=== PATIENT | female | born 1985 | race Caucasian/White ===

== ENCOUNTER 2019-07-01 07:57 | Emergency (ER) | payer MEDICAID ==
[~2019-07-01] VITALS: Ht 152.4 cm; Wt 68.0 kg
[2019-07-01 08:04] VITALS: BP 123/74
--- NOTE | 2019-07-01 08:14 | NUR ---
33 Y/O F C/C COUGH/FEVER X3 DAYS. PT TAKEN ROBITUSSIN/TYLENOL WITH NO RELIEF. NOT UP TO DATE WITH FLU SHOT/FAMILY SICK AT HOME. PT NKA. NO HX. NO RX. NO N/V/D. COUGH PAIN 8/10; FEVER BLISTERS X1 DAY. LUNG SOUNDS CLEAR. SIDE RAIL X1.
[2019-07-01 08:38] VITALS: BP 123/74
--- NOTE | 2019-07-01 08:38 | NUR ---
Patient discharged with v/s stable. Written and verbal after care instructions given and explained. Patient alert, oriented and verbalized understanding of instructions. Ambulatory with steady gait. All questions addressed prior to discharge. ID band removed. Patient advised to follow up with PMD. Rx of PROMETHAZINE,ACYCLOVIR given. Patient educated on indication of medication including possible reaction and side effects. Opportunity to ask questions provided and answered.
== END 2019-07-01 08:38 | disposition home or self-care (01) ==
LOC: MED 07:57
DX: B34.9 Viral infection, unspecified (principal); B00.1 Herpesviral vesicular dermatitis; J02.9 Acute pharyngitis, unspecified; R51 Headache; R19.7 Diarrhea, unspecified
CPT/HCPCS: 99283

== ENCOUNTER 2022-07-15 13:21 | Emergency (ER) | payer MEDICAID ==
[~2022-07-15] VITALS: Ht 152.4 cm; Wt 63.0 kg
[2022-07-15 13:26] VITALS: BP 132/82
[2022-07-15 16:32] LABS: APPEARANCE,URINE CLEAR (CLEAR); BILIRUBIN,URINE NEGATIVE (NEGATIVE); BLOOD, URINE LARGE (NEGATIVE); COLOR,URINE YELLOW (YELLOW); NITRITE, URINE NEGATIVE (NEGATIVE); PH,URINE 6.5 (5.0-9.0); UGLUCOSE NEGATIVE (NEGATIVE)
[2022-07-15 16:35] LABS: LEUKOCYTE ESTERASE ,URINE 3+ (NEGATIVE)
[2022-07-15] MEDS ORDERED: CEPH-588 PO (16:41)
[2022-07-15] MEDS ORDERED: PYR100 PO (16:41)
[2022-07-15 16:53] VITALS: BP 125/78
--- NOTE | 2022-07-15 16:53 | NUR ---
Patient discharged with v/s stable. Written and verbal after care instructions FOR UTI given and explained. Patient alert, oriented and verbalized understanding of instructions. Ambulatory with steady gait. All questions addressed prior to discharge. ID band removed. Patient advised to follow up with PMD. Rx of KEFLEX AND PYRIDIUM given. Opportunity to ask questions provided and answered.
[2022-07-15 17:04] LABS: RBC,URINE 20-50 /HPF (0-5); WBC,URINE 16-25 (MOD) /HPF (0-5)
== END 2022-07-15 16:53 | disposition home or self-care (01) ==
LOC: MED 13:21
DX: N39.0 Urinary tract infection, site not specified (principal); Z79.899 Other long term (current) drug therapy
CPT/HCPCS: 81001; 81025; 87086; 99283

== ENCOUNTER 2023-05-28 14:58 | Emergency (ER) | payer MEDICAID ==
[~2023-05-28] VITALS: Ht 152.4 cm; Wt 59.4 kg
[~2023-05-28 14:58] MED LIST: CEPH-588 PO; PYR100 PO
[2023-05-28 15:42] VITALS: BP 106/70; PULSE 76; RESP 20; TEMP 97.1; O2SAT 100
[2023-05-28] MEDS ORDERED: BPM/-9 PO (16:33)
[2023-05-28] MEDS ORDERED: SUD30 PO (16:37)
[2023-05-28 16:42] VITALS: BP 130/80; PULSE 16; RESP 22; TEMP 98; O2SAT 99
[2023-05-28 18:31] LABS: FLU A ANTIGEN negative (NEGATIVE); FLU B ANTIGEN NEGATIVE (NEGATIVE)
== END 2023-05-28 16:41 | disposition home or self-care (01) ==
LOC: MED 14:58
DX: J06.9 Acute upper respiratory infection, unspecified (principal); Z20.822 Contact with and (suspected) exposure to COVID-19; Z79.899 Other long term (current) drug therapy; Z79.2 Long term (current) use of antibiotics
CPT/HCPCS: 99283